=== PATIENT | female | born 1995 | race Caucasian/White ===

== ENCOUNTER 2017-10-02 12:53 | Emergency (ER) | payer OTHER, MEDICAID ==
[~2017-10-02] VITALS: Ht 172.7 cm; Wt 54.0 kg
[2017-10-02] MEDS ORDERED: HYDROXYZINE HCL25 M1 PO (13:09)
[2017-10-02 13:33] LABS: URINE BILIRUBIN NEGATIVE (Negative); URINE BLOOD NEGATIVE (Negative); URINE CLARITY CLEAR; URINE COLOR YELLOW; URINE GLUCOSE-RANDOM NEGATIVE (Negative); URINE KETONES NEGATIVE (Negative); URINE LEUKOCYTES-REFLEX NEGATIVE (Negative); URINE NITRITE-REFLEX NEGATIVE (Negative); URINE PROTEIN NEGATIVE (Negative); URINE SPECIFIC GRAVITY 1.025 (1.005-1.030); URINE UROBILINOGEN 0.2 E.U./dl (0.2-1.0)
[2017-10-02 13:36] LABS: ABSOLUTE BASOPHILS 0.1 thou/uL (0.0-0.2); ABSOLUTE EOSINOPHILS 0.1 thou/uL (0.0-0.7); ABSOLUTE LYMPHOCYTES 1.8 thou/uL (0.8-5.3); ABSOLUTE MONOCYTES 0.4 thou/uL (0.0-1.2); ABSOLUTE NEUTROPHILS 5.9 thou/uL (1.6-8.1); BASOPHILS 0.7 %; EOSINOPHILS 1.1 %; HEMATOCRIT 42.7 % (37.0-47.0); LYMPHOCYTES 21.6 %; MCH 30.2 pg (26.0-34.0); MCHC 32.7 g/dL (28.0-37.0); MCV 92.3 fL (80.0-100.0); MPV 8.7 fl. (7.2-11.1); NUCLEATED RBCS 0 /100WBC; PLATELET COUNT* 239 thou/uL (150-400); POLYS 71.6 %; RBC 4.63 mil/uL (4.20-5.00); RDW-CV 13.8 % (10.5-14.5); WBC 8.2 thou/uL (4.0-11.0)
[2017-10-02 13:41] LABS: AMP/METHAMP Negative (Negative); BARBITURATES Negative (Negative); BENZODIAZEPINES Negative (Negative); COCAINE Negative (Negative); METHADONE Negative (Negative); OPIATES Negative (Negative); PCP Negative (Negative); THC POSITIVE (Negative)
[2017-10-02 13:43] LABS: CALCIUM 8.8 mg/dL (8.5-10.1); CREATININE 0.9 mg/dL (0.6-1.3); POTASSIUM 3.6 mmol/L (3.5-5.1)
[2017-10-02] MEDS ORDERED: MECLIZINE HCL25 MG PO (14:08)
[2017-10-02 14:17] VITALS: BP 120/75
== END 2017-10-02 14:18 | disposition home or self-care (01) ==
LOC: M.ERS 12:53
PROVIDERS: Nurse Practitioner
DX: R42 Dizziness and giddiness (principal); F41.9 Anxiety disorder, unspecified; F32.9 Major depressive disorder, single episode, unspecified; F17.200 Nicotine dependence, unspecified, uncomplicated